=== PATIENT | male | born 1990 | race Two or more races ===

== ENCOUNTER 2021-06-03 16:19 | Emergency (ER) | payer MEDICAID ==
[~2021-06-03] VITALS: Ht 172.7 cm; Wt 73.0 kg
[2021-06-03 16:22] VITALS: BP 140/155
[2021-06-03] MEDS ORDERED: SODIUM CHLORIDE 0.9% 1,000 ML IV ONE (16:45)
[2021-06-03] MEDS ORDERED: LORAZEPAM 2MG/ML CPJ IV ONE (16:45)
[2021-06-03] MEDS ORDERED: OLANZAPINE 5MG TABLET PO ONE (16:45)
== END 2021-06-03 18:21 | disposition home or self-care (01) ==
LOC: ER 16:19
DX: Z00.8 Encounter for other general examination (principal); F15.10 Other stimulant abuse, uncomplicated; F41.9 Anxiety disorder, unspecified
CPT/HCPCS: 99283; J7030; J2060